=== PATIENT | male | born 1980 | race Caucasian/White ===

== ENCOUNTER 2016-10-14 22:55 | Emergency (ER) | payer MEDICAID, OTHER ==
[2016-10-14 23:33] VITALS: BP 139/72
[2016-10-14] MEDS ORDERED: Lidocaine 1% 30 ML SDV INJECT ONE (23:35)
[2016-10-15] MEDS ORDERED: Acetaminophen/HYDROcodone 325-10 MG Tab PO ONE (00:26)
[2016-10-15] MEDS ORDERED: Cephalexin 500 MG Cap PO ONE (00:26)
[2016-10-15] MEDS ORDERED: Bacitracin Oint 1 GM U/D Packet TOP ONE (00:28)
--- NOTE | 2016-10-15 00:33 | EDM.PDOC ---
ED HPI GENERAL MEDICAL PROBLEM - General Chief Complaint: Laceration Stated Complaint: CUT FINGER Time Seen by Provider: 10/15/16 00:05 Source of Information: Reports: Patient History Limitations: Reports: No Limitations - History of Present Illness INITIAL COMMENTS - FREE TEXT/NARRATIVE: This 36 yo male patient reports to the ED with a laceration to his distal left thumb. The patient reports he was splitting wood for a campfire when he hit his thumb with the axe. Onset: Today Duration: Minutes: Location: Reports: Upper Extremity, Left Quality: Reports: Ache, Dull Severity: Moderate Improves with: Reports: Movement Worsens with: Reports: None Associated Symptoms: Reports: No Other Symptoms Left 1-Thumb Pain Score (Numeric/FACES): 6 - Related Data Allergies Allergy/AdvReac Type Severity Reaction Status Date / Time amoxicillin [From Augmentin] Allergy Cannot Verified 10/14/16 23:19 Remember clavulanic acid Allergy Cannot Verified 10/14/16 23:19 [From Augmentin] Remember Home Meds: Home Meds . [No Known Home Meds] 10/14/16 [History] Past Medical History - Past Health History Medical/Surgical History: Denies Medical/Surgical History Social & Family History - Family History Family Medical History: Noncontributory - Tobacco Use Smoking Status *Q: Never Smoker - Recreational Drug Use Recreational Drug Use: No ED ROS GENERAL - Review of Systems Review Of Systems: ROS reveals no pertinent complaints other than HPI. ED EXAM, SKIN/RASH Exam: See Below Exam Limited By: No Limitations General Appearance: Alert, WD/WN, Moderate Distress Eye Exam: Bilateral Eye: EOMI, Normal Inspection, PERRL Ears: Normal External Exam, Normal Canal, Hearing Grossly Normal, Normal TMs Nose: Normal Inspection, Normal Mucosa, No Blood Throat/Mouth: Normal Inspection, Normal Lips, Normal Teeth, Normal Gums, Normal Oropharynx, Normal Voice, No Airway Compromise Head: Atraumatic, Normocephalic Neck: Normal Inspection, Supple, Non-Tender, Full Range of Motion Respiratory/Chest: No Respiratory Distress, Lungs Clear, Normal Breath Sounds, No Accessory Muscle Use, Chest Non-Tender Cardiovascular: Normal Peripheral Pulses, Regular Rate, Rhythm, No Edema, No Gallop, No JVD, No Murmur, No Rub GI/Abdominal: Normal Bowel Sounds, Soft, Non-Tender, No Organomegaly, No Distention, No Abnormal Bruit, No Mass (Male) Exam: Deferred Rectal (Males) Exam: Deferred Back Exam: Normal Inspection, Full Range of Motion, NT Extremities: No Pedal Edema, Normal Capillary Refill Neurological: Alert, Oriented, CN II-XII Intact, Normal Cognition, Normal Gait, Normal Reflexes, No Motor/Sensory Deficits Psychiatric: Normal Affect, Normal Mood Skin: Warm, Dry, Normal Color, No Rash Location, Skin: Upper Extremity, Left (distal thumb) Characteristics: Linear Associated features: Tenderness, Wwelling. No: Warmth, Induration Lymphatic: No Adenopathy ED SKIN PROCEDURES - Laceration/Wound Repair Left Distal Finger Lac/Wound length In cm: 6.0 Appearance: Subcutaneous Distal NVT: Neuro & Vascular Intact, No Tendon Injury Anesthetic Type: Digital Local Anesthesia - Lidocaine (Xylocaine): 1% Plain Local Anesthetic Volume: 5cc Skin Prep: Chlorhexidine (Hibiciens), Saline Exploration/Debridement/Repair: Wound Explored, in a Bloodless Field, Explored to Base, No Foreign Material Found Closed with: Sutures Suture Size: 4-0 # of Sutures: 9 Suture Type: Prolene, Interrupted, Simple Drain Placement: No Sterile Dressing Applied: Nurse Tetanus Status Addressed: Yes Complications: No Course - Vital Signs Last Recorded V/S: Last Vital Signs Temp 36.8 C 10/14/16 23:05 Pulse 78 10/14/16 23:05 Resp 18 10/14/16 23:05 BP 139/72 10/14/16 23:05 Pulse Ox - Orders/Labs/Meds Meds: Medications Discontinued Medications Generic Name Dose Route Start Last Admin Trade Name Lanie PRN Reason Stop Dose Admin Hydrocodone Bitart/Acetaminophen 1 tab 10/15/16 00:26 Horicon 325-10 Mg PO 10/15/16 00:27 ONETIME ONE Cephalexin 500 mg 10/15/16 00:26 Keflex PO 10/15/16 00:27 ONETIME ONE Lidocaine HCl 30 ml 10/14/16 23:35 Xylocaine-Mpf 1% INJECT 10/14/16 23:36 ONETIME ONE Departure - Departure Time of Disposition: 00:31 Disposition: Home, Self-Care 01 Condition: Fair Clinical Impression: Laceration of left thumb with damage to nail Qualifiers: Encounter type: initial encounter Foreign body presence: without foreign body Qualified Code(s): S61.112A - Laceration without foreign body of left thumb with damage to nail, initial encounter Open fracture of tuft of distal phalanx of left thumb Qualifiers: Encounter type: initial encounter Qualified Code(s): S62.522B - Displaced fracture of distal phalanx of left thumb, initial encounter for open fracture - Discharge Information Instructions: Laceration Care, Adult, [id number], Stitches, Margaret, or Adhesive Wound Closure, [id number], Nail Bed Injury, [id number] Forms: ED Department Discharge Care Plan Goals: The patient was advised of the examination and x-ray results during the visit. The patient's wound margins were well approximated during the visit. The patient was encouraged to keep the area clean an dry over the next 24 hours. The patient should have the sutures removed in about 14 days. The patient was given an oral dose of Keflex and Horicon while in the ED. The patient was discharged with a script for Keflex (500 mg) to take 1 by mouth 3 times per day for 10 days and Horicon (10/325) to take 1 by mouth every 6 hours as needed. The patient should have a follow-up appointment with his primary care facility in the next 2 weeks. If the patient has any additional symptoms or concerns, the patient should visit his primary care facility or return to the emergency department.
== END 2016-10-15 00:55 | disposition home or self-care (01) ==
LOC: DL.ED 22:55
DX: S61.112A Laceration without foreign body of left thumb with damage to nail, initial encounter (principal); Z88.1 Allergy status to other antibiotic agents; Z88.8 Allergy status to other drugs, medicaments and biological substances; W22.8XXA Striking against or struck by other objects, initial encounter
CPT/HCPCS: 12002; 73140; 99283; A9270; L3999